=== PATIENT | male | born 1985 | race Caucasian/White ===

== ENCOUNTER 2020-04-25 08:26 | Outpatient (REF) | payer OTHER, SELFPAY | END 2020-04-25 08:27 | disposition home or self-care (01) | LOC: HO.LAB 08:26 | PROVIDERS: Visit Provider Internal Medicine | DX: Z20.828 Contact with and (suspected) exposure to other viral communicable diseases (principal) | CPT/HCPCS: C9803; U0003 ==

== ENCOUNTER 2020-11-24 12:15 | Emergency (ER) | payer OTHER, MEDICAID, SELFPAY ==
--- NOTE | ~2020-11-24 | XR_ITS ---
EXAMINATION: XR FOOT, LEFT CLINICAL INFORMATION: Left dorsal foot infection. COMPARISON: None TECHNIQUE: AP, lateral, and oblique views of the left foot. FINDINGS: The bones and soft tissues are normal. No fracture. Alignment is anatomic. Joint spaces are maintained. XR/XR foot LT min 3V IMPRESSION: Unremarkable radiographic appearance of the left foot.
[2020-11-24 12:19] VITALS: BP 147/94; PULSE 83; RESP 16; TEMP 36.7; O2SAT 96; BMI 27.6
--- NOTE | 2020-11-24 13:06 | ED.GENADULT ---
HPI - General Adult General Chief complaint: Extremity Injury, Lower Stated complaint: lt leg pain Time Seen by Provider: 11/24/20 13:05 History of Present Illness HPI narrative: patient complains of left foot pain which started yesterday with no injury, he does have an injury dating back a couple years but no recent injury No fever no chills Related Data Previous Rx's Medication Instructions Recorded cephalexin 500 mg PO QID 7 Days #28 tab 11/24/20 hydrocodone-acetaminophen 1 tab PO Q6H PRN #10 tab 11/24/20 ibuprofen 600 mg PO Q6H PRN #20 tab 11/24/20 Allergies Allergy/AdvReac Type Severity Reaction Status Date / Time No Known Allergies Allergy Verified 11/24/20 12:19 Review of Systems Review of Systems: positive for left foot pain Negatives are no fever no chills no dizziness no weakness no fainting no feeling faint no headache no neck pain no back pain no chest pain no calf pain no calf swelling no numbness weakness or tingling Yes all other systems are reviewed and are negative PMFSH Past Medical History Source: nursing notes reviewed Medical History (Updated 11/24/20 @ 13:48 by ROBERT Diane) No pertinent past medical history Social History Social History Advance Directives: No Advance Directives Information Provided: Yes Physical Exam Vital Signs: Vital Signs: Last Vital Signs Temp 98.1 F 11/24/20 12:19 Pulse 83 11/24/20 12:19 Resp 16 11/24/20 12:19 BP 147/94 H 11/24/20 12:19 Pulse Ox 96 11/24/20 12:19 Body Mass Index 27.6 general appearance no distress Head is normocephalic atraumatic Neck is supple Respiratory no distress Extremities full range of motion x4 The left foot has redness on the dorsum of the foot that is red warm and tender, not swollen not fluctuant there is no wound there is no discharge, there is full range of motion in the toes and ankles, patient is walking with a limp and neurovascular intact distal Other extremities normal Course Course Course Narrative: x-ray was negative with no acute findings Cellulitis on dorsum of foot was marked and patient is started on Keflex and will return in 2-3 days for recheck and sooner if worse Discharge Plan Discharge Clinical Impression: Cellulitis Qualifiers: Site of cellulitis: extremity Site of cellulitis of extremity: lower extremity Laterality: left Qualified Code(s): L03.116 - Cellulitis of left lower limb Patient Disposition: Home, Self-Care Additional Instructions: I believe you have an infection of the skin so we are treating with Keflex antibiotic Motrin is a good anti-inflammatory and is helpful for mild pain, Vicodin is narcotic for home use only do not use when driving and only for pain not controlled by Motrin Return to the ER in 2-3 days for re-evaluation Return any time for spreading redness, worse pain and swelling, fever, any worse condition or any concerns Prescriptions: New hydrocodone-acetaminophen 5-325 mg tablet 1 tab PO Q6H PRN (Reason: pain) Qty: 10 RF: 0 cephalexin 500 mg tablet 500 mg PO QID 7 Days Qty: 28 RF: 0 ibuprofen 600 mg tablet 600 mg PO Q6H PRN (Reason: pain) Qty: 20 RF: 0
[2020-11-24] MEDS: cephALEXin 500 MG CAPSULE PO (13:17)
[2020-11-24] MEDS: Ketorolac Tromethamine 30 MG/ML VIAL IM (14:02)
== END 2020-11-24 14:09 | disposition home or self-care (01) ==
PROVIDERS: Emergency Provider Emergency Medicine Emergency Medical Services
DX: L03.116 Cellulitis of left lower limb (principal)
CPT/HCPCS: 73630; 96372; 99284; J1885

== ENCOUNTER 2020-11-27 13:43 | Emergency (ER) | payer OTHER, MEDICAID, SELFPAY ==
[2020-11-27 14:20] VITALS: BP 119/74; PULSE 64; RESP 17; TEMP 36.6; O2SAT 96; BMI 27.6
[2020-11-27 15:09] LABS: MANUAL DIFF FLAG NO
[2020-11-27 15:23] LABS: Basophils Percent Auto 0.2 % (0-2); Eosinophils Absolute Auto 0.2 X10*3/uL (0.0-0.4); Eosinophils Percent Auto 3.1 % (0-4); Hematocrit 41.3 % (42-52); Imm Gran Abs Auto 0.01 X10*3/uL (0.00-0.03); Imm Gran Pct Auto 0.2 % (0.0-0.4); Lymphocytes Absolute Auto 1.8 X10*3/uL (1.2-4.9); Lymphocytes Percent Auto 28.9 % (20-40); Mean Corpuscular HGB Conc 33.9 g/dl (31.0-36.0); Mean Corpuscular Hemoglobin 28.3 pg (27.0-33.0); Mean Corpuscular Volume 83.6 fL (80-98); Monocytes Absolute Auto 0.6 X10*3/uL (0.1-1.2); Monocytes Percent Auto 9.2 % (2-11); Neutrophils Absolute Auto 3.6 X10*3/uL (2.0-8.3); Neutrophils Percent Auto 58.4 % (45-73); Platelet Count 240 X10*3/uL (160-400); Red Blood Count 4.94 X10*6/uL (4.60-5.80); Red Cell Distribution Width 11.8 % (11.0-16.0); White Blood Count 6.1 X10*3/uL (4.8-10.8)
--- NOTE | 2020-11-27 15:26 | ED_ITS ---
HPI - Recheck/Abnormal Lab/Rx General Chief Complaint: Extremity Injury, Lower Stated Complaint: RECHECK Time Seen by Provider: 11/27/20 14:29 Source: patient and family Mode of arrival: ambulatory Limitations: no limitations History of Present Illness HPI narrative: [id number] who was recently seen here on 11/24/2020 for Atraumatic left foot pain started on antibiotics for cellulitic infection of Keflex and taking as prescribed although he reports that today he noticed the redness spread to a different area from where it was marked on 11/24/2020 despite taking the Keflex as prescribed. He denies any fevers, chills, Dizziness, chest pain, shortness of breath, dyspnea on exertion, orthopnea, palpitations, cough, history of MRSA or any other symptoms complaints or concerns at this time. MD complaint: wound re-check Initial visit (ago): day(s) ( 3 days ago) Initial visit for: cellulitis Returns today for: cellulitis follow-up Symptoms since prior visit: worsening redness ( in a different location from where was marked on 11/25/2019) Context: planned re-check Associated symptoms: none Treatments prior to arrival: other ( taking his Keflex as prescribed) Related Data Previous Rx's Medication Instructions Recorded cephalexin 500 mg PO QID 7 Days #28 tab 11/24/20 hydrocodone-acetaminophen 1 tab PO Q6H PRN #10 tab 11/24/20 ibuprofen 600 mg PO Q6H PRN #20 tab 11/24/20 indomethacin 50 mg PO BID 10 Days #20 cap 11/27/20 oxycodone 5 mg PO BID PRN #10 tab 11/27/20 sulfamethoxazole-trimethoprim 1 tab PO BID 10 Days #20 tab 11/27/20 [Bactrim DS] Allergies Allergy/AdvReac Type Severity Reaction Status Date / Time No Known Allergies Allergy Verified 11/24/20 12:19 Review of Systems Review of Systems: Constitutional : No changes in activity, No lethargy, No recent prior head injury, No agitation, No increased fussiness ENT/Mouth : No Ear Pain, No Nasal discharge/drainage Eyes: No Eye Pain, No Swelling, No Redness, No Foreign Body, No Vision Changes Cardiovascular : No Chest Pain, No SOB Respiratory : No Cough Gastrointestinal : No Nausea, No Vomiting, No abdominal Pain Genitourinary : No Dysuria, No Urinary Frequency, No Urinary Incontinence, No Urgency, No Flank Pain Musculoskeletal : positive left foot joint pain/surrounding erythema, No neck stiffness, No back pain/injury Skin : No lacerations Neuro : No unsteady gait, No Paresthesias, No Loss of Consciousness, No altered mental status, No Headache Yes all other systems are reviewed and are negative [facility] Past Medical History Attestation statement: The following information was validated with the patient. Medical History No pertinent past medical history Social History Social History Advance Directives: No Advance Directives Information Provided: No Physical Exam Vital Signs: Vital Signs: Last Vital Signs Temp 98 F 11/27/20 14:20 Pulse 64 11/27/20 14:20 Resp 17 11/27/20 14:20 BP 119/74 11/27/20 14:20 Pulse Ox 96 11/27/20 14:20 Body Mass Index 27.6 vital signs have been reviewed as normal and appeared to be correct. Blood pressure normal. Heart rate normal. Respiration rate normal. Temperature normal. Oxygen saturation normal. Appearance: Alert. Oriented X3. No acute distress. Head: Normal external exam. Normocephalic. Atraumatic. Eyes: PERRLA. EOMI. Conjunctiva and sclera normal. Eyelids normal. ENT: Pharynx normal. Uvula midline. Moist mucous membranes. Neck: Normal inspection. Neck supple. FROM. No adenopathy. Thyroid Normal. No meningeal signs. No neck mass noted. CVS: Normal heart rate and rhythm. Heart sound normal. Pulses normal throughout. No murmurs/rales/gallops. Respiratory: No respiratory distress. Painless inspiration. Breath sounds normal. No wheezes/rales/rhonchi noted. Chest nontender. No accessory muscle usage noted or decreased air movement noted. Back: Full range of motion noted. No rashes/lesion/induration/fluctuance or signs of infection noted. Skin: Skin warm and dry. Normal skin color. Normal skin turgor. No rashes/lesions/lacerations noted. Extremities: To the left foot dorsal aspect at the MC[facility] patient has a circular erythematous aspect consistent with a cellulitic infection although it is from where the Tracing josé manuel was done on 11/24/2020. Although no streaking up the leg. No fluctuance /induration. No lower extremity edema. No calf tenderness is noted. Otherwise Extremities exhibit normal range of motion and nontender. Neuro: Oriented X 3. No motor deficit. No sensory deficit. Reflexes normal. Normal steady gait. No focal neuro deficits noted. Vascular: + radial pulses/+ 2 distal pedal pulses/+2 dorsalis pedis b/l. Normal cap refill. No cyanosis noted to upper extremity nails and lower extremity toes nails. Course Course Course Narrative: 14:50pm - [id number] who was recently seen here on 11/24/2020 for Atraumatic left foot pain started on antibiotics for cellulitic infection of Keflex and taking as prescribed although he reports that today he noticed the redness spread to a different area from where it was marked on 11/24/2020 despite taking the Keflex as prescribed. Plan: Labs then re-evaluate. Reevaluation(s) Reevaluation #1: ESR 19. CRP 1.51. Otherwise all other labs including white blood cell count within normal limits. Patient most likely cellulitic infection versus gout. Will add a uric acid and DC home with adding Bactrim and indomethacin along with pain medication instructions to return if any new or worsening symptoms to follow up with primary care provider. Patient and at bedside understand and agree with this plan. Time: 17:15 MDM - Recheck/Abnormal Lab/Rx Medical Records Attestation: I reviewed the patient's medical records. Lab Data Attestation: I reviewed the patient's lab results. Result diagrams: 11/27/20 14:58 11/27/20 14:58 Labs: Lab Results 11/27/20 11/27/20 11/27/20 Range/Units 14:58 14:58 14:58 WBC 6.1 (4.8-10.8) X10*3/uL RBC 4.94 (4.60-5.80) X10*6/uL Hgb 14.0 (14.0-18.0) g/dl Hct 41.3 L (42-52) % MCV 83.6 (80-98) fL MCH 28.3 (27.0-33.0) pg MCHC 33.9 (31.0-36.0) g/dl RDW 11.8 (11.0-16.0) % Plt Count 240 (160-400) X10*3/uL MPV 10.0 (9.4-12.4) fL Immature Gran % (Auto) 0.2 (0.0-0.4) % Neut % (Auto) 58.4 (45-73) % Lymph % (Auto) 28.9 (20-40) % [place] % (Auto) 9.2 (2-11) % Eos % (Auto) 3.1 (0-4) % Baso % (Auto) 0.2 (0-2) % Lymph # (Auto) 1.8 (1.2-4.9) X10*3/uL [place] # (Auto) 0.6 (0.1-1.2) X10*3/uL Eos # (Auto) 0.2 (0.0-0.4) X10*3/uL Baso # (Auto) 0.0 (0.0-0.2) X10*3/uL Abs Immat Gran (auto) 0.01 (0.00-0.03) X10*3/uL Absolute Neuts (auto) 3.6 (2.0-8.3) X10*3/uL Absolute Nucleated RBC 0.000 (0.0-0.012) X10*3/uL Nucleated RBC % (auto) 0.0 (0.0-0.2) /100WBC ESR (0-15) MM/HR Sodium 141 (135-145) mmol/L Potassium 4.5 (3.3-5.1) mmol/L Chloride 108 (96-108) mmol/L Carbon Dioxide 24 (22-29) mmol/L Anion Gap 14 (12-20) BUN 14 (9-16) mg/dL Creatinine 1.13 (0.5-1.4) mg/dL Estim Creat Clear Calc 96.4 Estimated GFR > 60 Random Glucose 85 (60-115) mg/dL Calcium 9.9 (8.4-10.2) mg/dL Magnesium 2.0 (1.6-2.6) mg/dL Total Bilirubin 0.9 (0.0-1.0) mg/dL AST 27 (5-37) U/L ALT 39 (0-40) U/L Alkaline Phosphatase 80 (39-117) U/L C-Reactive Protein 1.51 H (< or = 0.50) mg/dL Total Protein 7.2 (6.5-8.0) g/dL Albumin 4.4 (3.5-5.0) g/dL 11/27/20 Range/Units 14:59 WBC (4.8-10.8) X10*3/uL RBC (4.60-5.80) X10*6/uL Hgb (14.0-18.0) g/dl Hct (42-52) % MCV (80-98) fL MCH (27.0-33.0) pg MCHC (31.0-36.0) g/dl RDW (11.0-16.0) % Plt Count (160-400) X10*3/uL MPV (9.4-12.4) fL Immature Gran % (Auto) (0.0-0.4) % Neut % (Auto) (45-73) % Lymph % (Auto) (20-40) % [place] % (Auto) (2-11) % Eos % (Auto) (0-4) % Baso % (Auto) (0-2) % Lymph # (Auto) (1.2-4.9) X10*3/uL [place] # (Auto) (0.1-1.2) X10*3/uL Eos # (Auto) (0.0-0.4) X10*3/uL Baso # (Auto) (0.0-0.2) X10*3/uL Abs Immat Gran (auto) (0.00-0.03) X10*3/uL Absolute Neuts (auto) (2.0-8.3) X10*3/uL Absolute Nucleated RBC (0.0-0.012) X10*3/uL Nucleated RBC % (auto) (0.0-0.2) /100WBC ESR 19 H (0-15) MM/HR Sodium (135-145) mmol/L Potassium (3.3-5.1) mmol/L Chloride (96-108) mmol/L Carbon Dioxide (22-29) mmol/L Anion Gap (12-20) BUN (9-16) mg/dL Creatinine (0.5-1.4) mg/dL Estim Creat Clear Calc Estimated GFR Random Glucose (60-115) mg/dL Calcium (8.4-10.2) mg/dL Magnesium (1.6-2.6) mg/dL Total Bilirubin (0.0-1.0) mg/dL AST (5-37) U/L ALT (0-40) U/L Alkaline Phosphatase (39-117) U/L C-Reactive Protein (< or = 0.50) mg/dL Total Protein (6.5-8.0) g/dL Albumin (3.5-5.0) g/dL Discharge Plan Discharge Clinical Impression: Cellulitis Patient Disposition: Home, Self-Care Instructions: Cellulitis (ED), Gout (ED) Additional Instructions: please continue taking your previously prescribed antibiotics as previously prescribed and start taking this new antibiotic. Return if any new or worsening symptoms. Prescriptions: New sulfamethoxazole-trimethoprim [Bactrim DS] 800-160 mg tablet 1 tab PO BID 10 Days Qty: 20 RF: 0 indomethacin 50 mg capsule 50 mg PO BID 10 Days Qty: 20 RF: 0 oxycodone 5 mg tablet 5 mg PO BID PRN (Reason: pain) Qty: 10 RF: 0 No Action hydrocodone-acetaminophen 5-325 mg tablet 1 tab PO Q6H PRN (Reason: pain) Qty: 10 RF: 0 cephalexin 500 mg tablet 500 mg PO QID 7 Days Qty: 28 RF: 0 ibuprofen 600 mg tablet 600 mg PO Q6H PRN (Reason: pain) Qty: 20 RF: 0 Referrals: Chad Mendieta MD [Primary Care Provider] - 2 days Print Language: Albanian
[2020-11-27 15:32] LABS: C Reactive Protein 1.51 mg/dL (< or = 0.50)
[2020-11-27 15:34] LABS: Alanine Aminotransferase 39 U/L (0-40); Albumin Level 4.4 g/dL (3.5-5.0); Alkaline Phosphatase 80 U/L (39-117); Anion Gap 14 (12-20); Aspartate Amino Transferase 27 U/L (5-37); Bilirubin Total 0.9 mg/dL (0.0-1.0); Blood Urea Nitrogen 14 mg/dL (9-16); Calcium 9.9 mg/dL (8.4-10.2); Carbon Dioxide 24 mmol/L (22-29); Chloride 108 mmol/L (96-108); Creatinine Clr Calc Pharmacy 96.4; Estimated Glomerular Filt Rate > 60; Glucose Random 85 mg/dL (60-115); Potassium 4.5 mmol/L (3.3-5.1); Sodium 141 mmol/L (135-145); Total Protein 7.2 g/dL (6.5-8.0)
[2020-11-27 17:02] LABS: Erythrocyte Sedimentation Rate 19 MM/HR (0-15)
[2020-11-27 17:50] LABS: Uric Acid 8.2 mg/dL (3.4-7.0)
== END 2020-11-27 17:43 | disposition home or self-care (01) ==
PROVIDERS: Physician Assistant Medical; Emergency Provider Emergency Medicine; PCP Family Medicine
DX: L03.116 Cellulitis of left lower limb (principal)
CPT/HCPCS: 36415; 80053; 83735; 84550; 85025; 85652; 86140; 99283

== ENCOUNTER 2021-01-17 12:43 | Outpatient (REF) | payer OTHER, MEDICAID, SELFPAY ==
[2021-01-17 15:02] LABS: Uric Acid 10.4 mg/dL (3.4-7.0)
== END 2021-01-17 12:44 | disposition home or self-care (01) ==
LOC: HO.WFDLDS 12:43
PROVIDERS: Visit Provider Family Medicine
DX: M10.9 Gout, unspecified (principal)
CPT/HCPCS: 36415; 84550

== ENCOUNTER 2021-03-04 12:41 | Outpatient (REF) | payer OTHER, MEDICAID, SELFPAY ==
[2021-03-04 12:50] LABS: MANUAL DIFF FLAG NO
[2021-03-04 13:40] LABS: Basophils Percent Auto 0.4 % (0-2); Eosinophils Absolute Auto 0.1 X10*3/uL (0.0-0.4); Eosinophils Percent Auto 2.9 % (0-4); Hematocrit 41.5 % (42-52); Hemoglobin 14.5 g/dl (14.0-18.0); Imm Gran Abs Auto 0.01 X10*3/uL (0.00-0.03); Imm Gran Pct Auto 0.2 % (0.0-0.4); Lymphocytes Absolute Auto 1.9 X10*3/uL (1.2-4.9); Lymphocytes Percent Auto 37.9 % (20-40); Mean Corpuscular HGB Conc 34.9 g/dl (31.0-36.0); Mean Platelet Volume 10.3 fL (9.4-12.4); Monocytes Absolute Auto 0.4 X10*3/uL (0.1-1.2); Monocytes Percent Auto 8.8 % (2-11); Neutrophils Absolute Auto 2.4 X10*3/uL (2.0-8.3); Neutrophils Percent Auto 49.8 % (45-73); Platelet Count 254 X10*3/uL (160-400); Red Cell Distribution Width 11.8 % (11.0-16.0); White Blood Count 4.9 X10*3/uL (4.8-10.8)
[2021-03-04 13:57] LABS: Appearance Urine CLEAR; Color Urine YELLOW; Glucose Urine UA NEG (NEG); Leukocyte Esterase Urine NEG (NEG); Nitrite Urine NEG (NEG); PH 5.5 (5.0-8.0); Urine Blood NEG (NEG); Urine Ketones NEG (NEG); Urine Protein NEG (NEG-TRACE)
[2021-03-04 14:23] LABS: TSH reflex Free T4 1.98 uIU/mL (0.32-4.0)
[2021-03-04 14:44] LABS: Alanine Aminotransferase 50 U/L (0-40); Albumin Level 4.5 g/dL (3.5-5.0); Alkaline Phosphatase 72 U/L (39-117); Anion Gap 12 (12-20); Aspartate Amino Transferase 28 U/L (5-37); Bilirubin Total 0.9 mg/dL (0.0-1.0); Blood Urea Nitrogen 17 mg/dL (9-16); Calcium 9.8 mg/dL (8.4-10.2); Carbon Dioxide 28 mmol/L (22-29); Chloride 106 mmol/L (96-108); Cholesterol 211 mg/dL; Estimated Glomerular Filt Rate > 60; Glucose Fasting 94 mg/dL (60-99); HDL Cholesterol 41 mg/dL; LDL Cholesterol Calculated 142 mg/dl; Potassium 4.7 mmol/L (3.3-5.1); Sodium 141 mmol/L (135-145); Total Protein 7.2 g/dL (6.5-8.0); Triglycerides 142 mg/dL; Uric Acid 8.1 mg/dL (3.4-7.0)
== END 2021-03-04 12:42 | disposition home or self-care (01) ==
LOC: HO.LAB 12:41
PROVIDERS: PCP Family Medicine; Visit Provider Family Medicine
DX: Z00.00 Encounter for general adult medical examination without abnormal findings (principal); M10.9 Gout, unspecified
CPT/HCPCS: 36415; 80053; 80061; 81003; 84443; 84550; 85025

== ENCOUNTER 2021-06-11 12:02 | Outpatient (REF) | payer OTHER, MEDICAID, SELFPAY ==
[2021-06-11 12:58] LABS: COVID-19 Test Negative (Negative); IDNOW Serial# 16C4AD1C
== END 2021-06-11 12:03 | disposition home or self-care (01) ==
LOC: HO.LAB 12:02
PROVIDERS: Visit Provider Internal Medicine
DX: Z20.822 Contact with and (suspected) exposure to COVID-19 (principal)
CPT/HCPCS: 87635; C9803

== ENCOUNTER 2023-06-02 13:30 | Emergency (ER) | payer MEDICAID, SELFPAY ==
--- NOTE | ~2023-06-02 | XR_ITS ---
EXAMINATION: XR FOOT, LEFT CLINICAL INFORMATION: Heel pain. COMPARISON: None available. TECHNIQUE: AP, lateral, and oblique views of the left foot. FINDINGS: The bones and soft tissues are normal. No fracture. Alignment is anatomic. Joint spaces are maintained. XR/XR foot LT 2V IMPRESSION: Unremarkable left foot.
[2023-06-02 15:24] VITALS: BP 145/93; PULSE 60; RESP 18; TEMP 37.2; O2SAT 100; BMI 31.3
--- NOTE | 2023-06-02 15:32 | ED.GENADULT ---
HPI - General Adult General Chief complaint: Extremity Injury, Lower Stated complaint: L Foot Pain Injury 1 Wk Ago Time Seen by Provider: 06/02/23 17:07 Source: patient Mode of arrival: ambulatory Limitations: no limitations History of Present Illness HPI narrative: 37 yold male with pmh of gout presents to the ED for left heel pain since playing soccer last week. patient denies any cracking or popping sound of left lower extremity. Patient states no foot redness or swelling. Related Data Previous Rx's Medication Instructions Recorded allopurinol 100 mg tablet 100 mg PO DAILY #90 tabs 10/23/21 colchicine 0.6 mg tablet 0.3 mg (1/2 x 0.6 mg) PO DAILY #3 10/23/21 tabs indomethacin 50 mg capsule 50 mg PO BID gout 10 days #20 caps 10/23/21 prednisone 20 mg tablet 40 mg (2 x 20 mg) PO DAILY #10 tabs 10/23/21 naproxen 500 mg tablet 500 mg PO BID PRN pain 7 days #14 06/02/23 tabs prednisone 20 mg tablet 40 mg (2 x 20 mg) PO DAILY 5 days 06/02/23 #10 tabs Allergies Allergy/AdvReac Type Severity Reaction Status Date / Time No Known Allergies Allergy Verified 10/23/21 16:11 Review of Systems Review of Systems: Left heel pain Yes all other systems are reviewed and are negative PMFSH Past Medical History Onset Date is defined in the Problem List Problems that require an onset date and time if occurred within 24 hrs of arrival to the ED Aortic Dissection and Rupture; Neurologic impairment; Cardiopulmonary Arrest; Endotracheal Intubation; Insertion or Replacement of Mechanical Circulatory Assist Device Medical History No pertinent past medical history Surgical History No pertinent past surgical history Social History Social History Housing: Condominium Patient Tobacco Use Status: Never used Tobacco Advance Directives: No Advance Directives Information Provided: No Current occupational status: employed Physical Exam ED Vital Signs: Vital Signs - 24 hr 06/02/23 15:24 Temperature 98.9 F Pulse Rate 60 Respiratory Rate 18 Blood Pressure 145/93 H Pulse Oximetry 100 Oxygen Delivery Method Room Air BMI result Body Mass Index 31.3 Const General: cooperative, healthy appearing, comfortable, no acute distress, well developed, alert and awake Orientation/consciousness: oriented to person, oriented to place, oriented to time and patient oriented x3 HENMT Head: Yes normal to inspection, Yes No palpable skull fracture present, Yes normocephalic and Yes atraumatic Eyes General: appearance normal, both eyes and all related structures Visual Pinon: normal visual pinon by confrontation Alignment and Position: alignment normal Periorbital: periorbital findings normal Eyelids: Yes eyelids normal Conjunctivae: conjunctivae normal Sclerae: sclerae normal Corneas: corneas normal Pupils: Equal, round and reactive pupils present EOM: EOMs intact bilaterally Direct Ophthalmoscopy: normal light reflex Neck Neck: Yes normal visual inspection, Yes full ROM, Yes no lymphadenopathy, Yes no meningeal signs, Yes trachea midline, Yes supple, No anterior neck swelling and No tender Chest Chest palpation & inspection: normal inspection of the chest and normal palpation of entire chest wall Resp Effort & Inspection: normal respiratory effort and able to speak in complete sentences Auscultation: clear to auscultation bilaterally Cardio Jugular venous distension: no JVD Heart sounds: S1 normal heart sound present and S2 normal heart sound present GI Inspection: Yes normal to inspection Palpation (GI): Soft to palpation, not firm, nontender, no guarding and not rigid General: Yes no CVA tenderness Back/Spine/Pelvis Back: no CVA tenderness and No back tenderness Skin General skin exam: no rashes or lesions noted, elasticity normal and turgor normal Neuro General: oriented to person, oriented to place, oriented to time, patient oriented x3, gait normal, tone normal, moves all extremities, Normal light touch and pain sensation, no meningeal signs and no focal motor deficits Cranial nerves: Yes Equal, round and reactive pupils present Extrem General: Yes normal to inspection and Yes full ROM Ankle/foot/toe images: 1. positive for tenderness on palpation. negative for ecchymosis, redness, deformity, or elasticity. Rest of extremity is normal. Motor, neuro, and vascular exam is intact Psych Appearance: grossly normal, well kempt and not disheveled Course Course Course Narrative: RME: 37-year-old male with left heel pain due to playing soccer. Patient denies any cracking sound. X-ray ordered. Neurovascular motor exam intact. 5:33pm: Left foot x-ray normal. Patient discharge pain meds Medical Decision Making Medical Decision Making MDM Narrative: 37 yold male presents to the ED for left heel pain. Xray is normal. negative for signs of DVT, arterial occlusion, cellulitis, gout, compartment syndrome, fracture, dislocation, or osteomyleilitis. discharged with naproxen and presdnisone. informed to follow up with PCP. Differential Diagnosis Differential Diagnoses: The differential diagnosis associated with the presentation includes (heel spur, plantar fasciitis, gout, fracture, sprain) Independent Interpretation I performed an independent interpretation of an: Plain X-Ray Radiology Impression Discussion of test interpretation with radiology: I have reviewed the radiologist's reading. External Record Review External record reviewed: Other (Prior notes, visits) Prescription Management I considered prescription management with: Pain Medication Discharge Plan Discharge Clinical Impression: Foot pain, Heel pain Patient Disposition: Home, Self-Care Instructions: Arthralgia (ED) Additional Instructions: Foot x-ray came back normal. Return to the ED immediately for worsening foot pain, swelling, redness, bluish black discoloration, hotness, coldness, leg swelling, red streaks, calf pain, chest pain, shortness of breath, or any other concerning symptoms. Please follow up with PCP Prescriptions: New naproxen 500 mg tablet 500 mg PO BID PRN (Reason: pain) 7 Days Qty: 14 0RF prednisone 20 mg tablet 40 mg PO DAILY 5 Days Qty: 10 0RF No Action allopurinol 100 mg tablet 100 mg PO DAILY Qty: 90 3RF Rx Instructions: start after finishing prednisone colchicine 0.6 mg tablet 0.3 mg PO DAILY Qty: 3 0RF Rx Instructions: patient to take two upon reciept and then one one hour later for a total of 3 tabs prednisone 20 mg tablet 40 mg PO DAILY Qty: 10 0RF indomethacin 50 mg capsule 50 mg PO BID 10 Days Qty: 20 1RF Rx Instructions: administer with food or milk Stand Alone Forms: Work/School Release Interventions: ED Discharge Assessment Last Done: 06/02/23 21:33 Discharge Date/Time: 06/02/23 21:34 Print Language: New Zealander
== END 2023-06-02 21:34 | disposition home or self-care (01) ==
PROVIDERS: Emergency Provider Student in an Organized Health Care Education/Training Program; PCP Family Medicine
DX: M79.672 Pain in left foot (principal)
CPT/HCPCS: 73620; 99282; 99283

== ENCOUNTER 2024-10-12 13:52 | Emergency (ER) | payer OTHER, SELFPAY ==
--- NOTE | ~2024-10-12 | XR_ITS ---
EXAMINATION: XR FOOT 3 OR MORE VIEWS RIGHT HISTORY: swelling/pain ?gout COMPARISON: Comparison is made with the prior examination dated 09/23/2019. FINDINGS: Three views of the right foot are submitted. Osseous mineralization is normal. There is no fracture or dislocation. The joint spaces are preserved. There are no osseous erosions. The soft tissues are unremarkable. XR/XR foot RT min 3V IMPRESSION: Unremarkable examination of the right foot. Electronically signed by: Darren Flood MD 10/12/2024 02:36 PM EDT
[2024-10-12 14:00] VITALS: BP 149/77; PULSE 86; RESP 16; TEMP 36.6; O2SAT 99; BMI 28.1
--- NOTE | 2024-10-12 14:00 | ED.AMS ---
HPI - Altered Mental Status General Chief Complaint: Extremity Injury, Lower Stated Complaint: R Foot Pain, Trouble Walking Time Seen by Provider: 10/12/24 14:41 Source: patient, RN notes reviewed and old records reviewed Mode of arrival: ambulatory History of Present Illness ED Provider: Tri Herrera PA-C HPI narrative: 39-year-old male with a past medical history of gout presenting to the ED complaining of atraumatic right foot pain and swelling x6 days. States difficulty ambulating secondary to pain, has been using 1 crutch. Admits symptoms feel similar to prior gout flares in the past. Denies injury, trauma, fall, numbness, tingling, weakness, pedal edema Related Data Previous Rx's ?Medication ?Instructions ?Recorded allopurinol 100 mg tablet 100 mg PO DAILY #90 tabs 10/23/21 colchicine 0.6 mg tablet 0.3 mg (1/2 x 0.6 mg) PO DAILY #3 10/23/21 tabs indomethacin 50 mg capsule 50 mg PO BID gout 10 days #20 caps 10/23/21 prednisone 20 mg tablet 40 mg (2 x 20 mg) PO DAILY #10 tabs 10/23/21 naproxen 500 mg tablet 500 mg PO BID PRN pain 7 days #14 06/02/23 tabs prednisone 20 mg tablet 40 mg (2 x 20 mg) PO DAILY 5 days 06/02/23 #10 tabs naproxen 500 mg tablet 500 mg PO BID PRN pain 10 days #20 10/12/24 tabs prednisone 20 mg tablet 40 mg (2 x 20 mg) PO DAILY 5 days 10/12/24 #10 tabs Allergies Allergy/AdvReac Type Severity Reaction Status Date / Time No Known Allergies Allergy Verified 10/12/24 14:03 Review of Systems Review of Systems: Yes all other systems are reviewed and are negative Constitutional: Constitutional: Reports as per HPI [facility] Past Medical History Attestation statement: The following information was validated with the patient. Source: old records reviewed Medical History No pertinent past medical history Surgical History No pertinent past surgical history Social History Social History Housing: [facility] Patient Tobacco Use Status: Never used Tobacco Do you have a plan to hurt others: No Plan Current occupational status: employed Physical Exam ED Vital Signs: Vital Signs - 24 hr 10/12/24 14:00 Temperature 97.8 F Pulse Rate 86 Respiratory Rate 16 Blood Pressure 149/77 H Pulse Oximetry 99 Oxygen Delivery Method Room Air BMI result Body Mass Index 28.1 Const General: cooperative, healthy appearing and no acute distress Orientation/consciousness: patient oriented x3 Limitations: no limitations HENMT Head: Yes normal to inspection and Yes atraumatic Ears: hearing grossly normal bilaterally General nose exam: Normal external nose present Face and sinus: Yes normal facial exam Eyes General: appearance normal, both eyes and all related structures EOM: EOMs intact bilaterally Neck Neck: Yes normal visual inspection and Yes no meningeal signs Resp Effort & Inspection: normal respiratory effort and no respiratory distress Cardio Rate: regular rate Skin Rashes: no rashes Wounds: no wounds Neuro General: patient oriented x3, tone normal and no meningeal signs Cranial nerves: Yes CN's II-XII intact bilaterally Gait exam (Neuro): Normal gait present Extrem Other: Right foot with appreciable swelling to dorsal aspect. Tender to palpation. No erythema or warmth. Ankle nontender. Neurovascularly intact. No crepitus. No pitting edema. No calf tenderness Course Course Course Narrative: This is a Rapid Medical Exam performed in triage by Tri Herrera PA-C. Full HPI, ROS and PE to be performed by primary ED provider. 39 yo M w/pmhx gout presenting to the ED c/o R foot pain x6 days. denies injury/fall/trauma. Admits to hx gout & this feels similar PE: ambulating with crutches, R foot with +swelling & ttp. NV intact, No pitting edema Plan: labs, XR, pain control 1446--XR foot RT min 3V IMPRESSION: Unremarkable examination of the right foot. -labs reassuring. CRP mildly elevated. Uric acid WNL > Patient will be supplied with crutches Results discussed with patient including worrisome signs and symptoms and strict return precautions, and when to return to the emergency department. They verbalized understanding and feel safe for discharge at this time. Medical Decision Making Medical Decision Making MDM Narrative: 39-year-old male with a past medical history of gout presenting to the ED complaining of atraumatic right foot pain and swelling x6 days. On exam vital signs stable, NAD, nontoxic appearing, physical exam as noted above. Concern for gout flare vs sprain. Low suspicion for fracture. No evidence of cellulitis. Unlikely septic joint or DVT Plan: Labs, x-ray Please refer to course for remaining clinical decision making, interpretation of labs/imaging results, and discussions with consultants and/or family members. Differential Diagnosis Differential Diagnoses: The differential diagnosis associated with the presentation includes As above Lab Data MDM Lab Attestation statement: I reviewed the patient's lab results. 10/12/24 14:16 10/12/24 14:16 Labs: Lab Results 10/12/24 Range/Units 14:16 WBC 5.2 (4.8-10.8) X10*3/uL RBC 5.05 (4.60-5.80) X10*6/uL Hgb 14.7 (14.0-18.0) g/dl Hct 41.8 L (42.0-52.0) % MCV 82.8 (80.0-98.0) fL MCH 29.1 (27.0-33.0) pg MCHC 35.2 (31.0-36.0) g/dl RDW 12.2 (11.0-16.0) % Plt Count 278 (160-400) X10*3/uL MPV 9.3 L (9.4-12.4) fL Immature Gran % (Auto) 0.2 (0.0-0.4) % Neut % (Auto) 59.0 (45-73) % Lymph % (Auto) 25.5 (20-40) % [place] % (Auto) 8.4 (2-11) % Eos % (Auto) 6.1 H (0-4) % Baso % (Auto) 0.8 (0-2) % Lymph # (Auto) 1.3 (1.2-4.9) X10*3/uL [place] # (Auto) 0.4 (0.1-1.2) X10*3/uL Eos # (Auto) 0.3 (0.0-0.4) X10*3/uL Baso # (Auto) 0.0 (0.0-0.2) X10*3/uL Abs Immat Gran (auto) 0.01 (0.00-0.03) X10*3/uL Absolute Neuts (auto) 3.1 (2.0-8.3) x10*3/uL Absolute Nucleated RBC 0.000 (0.0-0.012) X10*3/uL Nucleated RBC % (auto) 0.0 (0.0-0.2) /100WBC Sodium 142 (135-145) mmol/L Potassium 4.1 (3.3-5.1) mmol/L Chloride 103 (96-108) mmol/L Carbon Dioxide 30 H (22-29) mmol/L Anion Gap 13 (12-20) BUN 14 (9-16) mg/dL Creatinine 1.15 (0.5-1.4) mg/dL Estim Creat Clear Calc 91.8 Estimated GFR > 60 Random Glucose 124 H (60-115) mg/dL Uric Acid 6.4 (3.4-7.0) mg/dL Calcium 10.5 H D (8.4-10.2) mg/dL C-Reactive Protein 2.20 H (< or = 0.50) mg/dL Independent Interpretation I performed an independent interpretation of an: Plain X-Ray Radiology Impression Discussion of test interpretation with radiology: I have reviewed the radiologist's reading. External Record Review External record reviewed: Inpatient record, Office record, Outpatient record, Prior outpatient labs, Prior outpatient radiology, Primary care record and Outside ED record Tests considered The following testing was considered but not selected: As above Prescription Management I considered prescription management with: Pain Medication Chronic Conditions Patient?s care impacted by: Other Social Determinants Patient?s care significantly limited by Social Determinants of Health including: Other Social Determinant of Health Discharge Plan Discharge Clinical Impression: Gout Patient Disposition: Home, Self-Care Instructions: Low Purine Diet (ED), Gout (ED) Additional Instructions: Your blood work and imaging is reassuring Naproxen as an anti-inflammatory/pain medication, take with food Prednisone as a steroid please take as prescribed until completion Follow up with your primary care doctor Use crutches and Osmel wrap as needed If pain persists or worsens/becomes unbearable, area becomes red, warm or you have fever return to the ED Prescriptions: New prednisone 20 mg tablet 40 mg PO DAILY 5 Days Qty: 10 0RF naproxen 500 mg tablet 500 mg PO BID PRN (Reason: pain) 10 Days Qty: 20 0RF No Action naproxen 500 mg tablet 500 mg PO BID PRN (Reason: pain) 7 Days Qty: 14 0RF prednisone 20 mg tablet 40 mg PO DAILY 5 Days Qty: 10 0RF allopurinol 100 mg tablet 100 mg PO DAILY Qty: 90 3RF Rx Instructions: start after finishing prednisone colchicine 0.6 mg tablet 0.3 mg PO DAILY Qty: 3 0RF Rx Instructions: patient to take two upon reciept and then one one hour later for a total of 3 tabs prednisone 20 mg tablet 40 mg PO DAILY Qty: 10 0RF indomethacin 50 mg capsule 50 mg PO BID 10 Days Qty: 20 1RF Rx Instructions: administer with food or milk Referrals: Saw Landon DO [Primary Care Provider] - 5 days Print Language: Haitian
[2024-10-12 14:19] LABS: MANUAL DIFF FLAG NO
[2024-10-12 14:26] LABS: Basophils Percent Auto 0.8 % (0-2); Eosinophils Absolute Auto 0.3 X10*3/uL (0.0-0.4); Eosinophils Percent Auto 6.1 % (0-4); Hematocrit 41.8 % (42.0-52.0); Hemoglobin 14.7 g/dl (14.0-18.0); Imm Gran Abs Auto 0.01 X10*3/uL (0.00-0.03); Imm Gran Pct Auto 0.2 % (0.0-0.4); Lymphocytes Absolute Auto 1.3 X10*3/uL (1.2-4.9); Lymphocytes Percent Auto 25.5 % (20-40); Mean Corpuscular HGB Conc 35.2 g/dl (31.0-36.0); Mean Corpuscular Hemoglobin 29.1 pg (27.0-33.0); Mean Corpuscular Volume 82.8 fL (80.0-98.0); Mean Platelet Volume 9.3 fL (9.4-12.4); Monocytes Absolute Auto 0.4 X10*3/uL (0.1-1.2); Monocytes Percent Auto 8.4 % (2-11); Neutrophils Absolute Auto 3.1 x10*3/uL (2.0-8.3); Platelet Count 278 X10*3/uL (160-400); Red Blood Count 5.05 X10*6/uL (4.60-5.80); Red Cell Distribution Width 12.2 % (11.0-16.0); White Blood Count 5.2 X10*3/uL (4.8-10.8)
[2024-10-12 14:39] LABS: Anion Gap 13 (12-20); Blood Urea Nitrogen 14 mg/dL (9-16); Calcium 10.5 mg/dL (8.4-10.2); Carbon Dioxide 30 mmol/L (22-29); Chloride 103 mmol/L (96-108); Creatinine Clr Calc Pharmacy 91.8; Estimated Glomerular Filt Rate > 60; Glucose Random 124 mg/dL (60-115); Potassium 4.1 mmol/L (3.3-5.1); Sodium 142 mmol/L (135-145); Uric Acid 6.4 mg/dL (3.4-7.0)
[2024-10-12] MEDS: Ketorolac Tromethamine 30 MG/ML VIAL IM (15:08)
--- OUTSIDE RECORDS SUMMARY | 2024-10-12 15:18 | XMS_ITS ---
Author Name CRIS Organization Unknown Encounters Encounter Type Encounter Reason Primary Diagnosis Location Date Emergency BACK PAIN BACK PAIN [facility] 09/22/2022 Care Team Organization Name Specialty Phone Email Start Date End Da [facility] directory Not Primary Care 09/23/2022 [facility] Not directory Primary Care 09/22/202209/22
[2024-10-12 15:23] VITALS: BP 149/77; PULSE 86; RESP 16; TEMP 36.6; O2SAT 99
[2024-10-12 15:25] LABS: Erythrocyte Sedimentation Rate 53 MM/HR (0-15)
== END 2024-10-12 15:26 | disposition home or self-care (01) ==
LOC: HO.ED 15:11
PROVIDERS: Physician Assistant; Emergency Provider Emergency Medicine; PCP Family Medicine
DX: M10.9 Gout, unspecified (principal); M79.671 Pain in right foot
CPT/HCPCS: 36415; 73630; 80048; 84550; 85025; 85652; 86140; 96372; 99284; J1885

== ENCOUNTER → 2024-10-12 14:02 | Outpatient (BNV) | payer MEDICAID, SELFPAY | PROVIDERS: PCP Family Medicine; Visit Provider Radiology Diagnostic Radiology | DX: R22.41 Localized swelling, mass and lump, right lower limb (principal) | CPT/HCPCS: 73630 ==